=== PATIENT | female | born 1955 | race Caucasian/White ===

== ENCOUNTER 2017-03-27 12:58 | Emergency (ER) | payer OTHER ==
--- NOTE | ~2017-03-27 | CR72 ---
[facility] A Service of [facility] RADIOLOGY TEXT RESULTS PATIENT: BRINDA COLLINS LOCATION: [facility] : 53 UNIT #: [id number] AGE: [address]: Arpit Callahan MD SEX: F ORDER DR: [id number] [facility] [address] [place], [place] [address] [id number] E MR#: [id number] Acc #: [id number] NAME: BRINDA COLLINS : 1955 SEX: F STUDY DATE/TIME: 03/27/2017 14:50 UNIT: [facility] ROOM: STUDY DESCRIPTION: CR Chest Single View Portable Attending Physician: Arpit Callhaan M.D. Ordering Physician: Arpit Callahan M.D. Primary Care Physician: Laurie Cat M.D. MEDICAL IMAGING REPORT This report is preliminary unless electronic signature is present EXAM Portable chest HISTORY Dyspnea and weakness for the past 2 weeks. TECHNIQUE Single view of the chest was obtained and compared with 11/05/2016 FINDINGS Borderline cardiomegaly is noted. The lungs are clear with normal vascular markings and no pleural fluid is seen. No changes noted since the previous exam. IMPRESSION No active disease. Borderline cardiomegaly. Dictated by... Casey Oviedo M.D. THIS IS AN ELECTRONICALLY VERIFIED REPORT Casey Oviedo M.D. at 03/28/2017 10:30 AM Donald TD: 03/27/2017 16:09 JOB #: [id number] MEDICAL IMAGING REPORT Page 1 of 1 COPY
--- NOTE | ~2017-03-27 | EKG ---
PATIENT: BRINDA COLLINS UNIT #: [id number] Ventricular Rate: 55 BPM Atrial Rate: 55 BPM P-R Interval: 144 ms QRS Duration: 82 ms Q-T Interval: 408 ms QTC Calculation(Bezet): 390 ms P [place]: 14 degrees Calculated R [place]: 11 degrees Calculated T [place]: 29 degrees Diagnosis Line: Sinus bradycardia Diagnosis Line: Minimal voltage criteria for LVH, may be normal Diagnosis Line: variant Diagnosis Line: Borderline ECG Diagnosis Line: When compared with ECG of 06-NOV-2016 07:15, Diagnosis Line: QT has shortened Diagnosis Line: Confirmed by SHAUN MAHMOOD MD ([id number]) on Diagnosis Line: 03/28/2017 7:24:54 AM INTERPRETING MD: JOJO
--- NOTE | ~2017-03-27 | CT16 ---
[facility] A Service [facility] RADIOLOGY TEXT RESULTS PATIENT: BRINDA COLLINS LOCATION: [facility] : 53 UNIT #: [id number] AGE: [address]: Arpit Callahan MD SEX: F ORDER DR: [id number] [facility] [address] [place], [place] [address] [id number] E MR#: [id number] Acc #: [id number] NAME: BRINDA COLLINS : 1955 SEX: F STUDY DATE/TIME: 03/27/2017 16:41 UNIT: [facility] ROOM: STUDY DESCRIPTION: CT Angio Chest for PE Attending Physician: Arpit Callahan M.D. Ordering Physician: Arpit Callahan M.D. Primary Care Physician: Laurie Cat M.D. MEDICAL IMAGING REPORT This report is preliminary unless electronic signature is present EXAM CT chest PE protocol. HISTORY Shortness of air, onset today, diagnosed 2 weeks ago with pleurisy, one week ago with pneumonia. COMPARISON CT chest, 11/05/2016. TECHNIQUE Axial images performed through the chest following IV contrast. 3-D coronal and sagittal reconstructed images reviewed at a workstation. This CT exam was performed with one or more of the following radiation dose reduction techniques: automatic exposure control, adjustment of mA and/or kV according to patient size, and iterative reconstruction. FINDINGS The pulmonary parenchyma is unremarkable. No focal airspace disease or pneumonia. There is a right lower lobe granuloma. Trachea and bronchi unremarkable. Normal enhancement of the pulmonary arteries. No evidence of embolus. Heart and aorta unremarkable. No adenopathy. Upper abdomen appears normal. Osseous structures show mild degenerative changes in the [id number] thoracic spine. Thoracic inlet unremarkable. Generalized obesity. There is a small amount of pneumobilia. This is nonspecific in the setting of prior cholecystectomy. There are calcified bilateral hilar lymph nodes compatible with prior granulomatous disease. IMPRESSION No acute intrathoracic abnormality identified. In particular, no evidence of pulmonary embolus. [facility] A Service [facility] RADIOLOGY TEXT RESULTS PATIENT: BRINDA COLLINS [id number] 53 UNIT #: [id number] AGE: [address]: Arpit Callahan MD SEX: F ORDER DR: Dictated by... Nicol Junior M.D. THIS IS AN ELECTRONICALLY VERIFIED REPORT Nicol Junior M.D. at 03/28/2017 2:45 PM MAXIMILIAN/joao TD: 03/27/2017 17:27 JOB #: [id number] MEDICAL IMAGING REPORT Page 1 of 1 COPY
[~2017-03-27 12:58] MED LIST: AMLODIPINE BESY10 MG PO; CHEWABLE ASPIRI81 MG PO; CITALOPRAM HBR40 M1 PO; FISH OIL PO; HYDROCHLOROTHIA25 MG PO; LEVAQUIN750 MG PO; LOSARTAN POTAS100 MG PO; METOPROLOL TAR25 MG PO; SUDAFED PO; VITAMIN B6 PO; WELLBUTRIN XL150 M2 PO
[2017-03-27 13:26] LABS: BASOPHIL# 0.1 X10e3 (0-0.3); BASOPHIL% 0.6 % (0-2.5); DIFF IND NO; EOSINOPHIL# 0.1 X10e3 (0-0.7); EOSINOPHIL% 0.5 % (0.0-7.0); HEMATOCRIT 39.9 % (35.0-45.0); LYMPHOCYTE# 2.3 X10e3 (1.0-3.5); LYMPHOCYTE% 15.6 % (17.0-45.0); MEAN CELL VOLUME 90.8 FL (83-96); MEAN CORPUSCULAR HEMOGLOBIN 29.7 PG (28-34); MEAN CORPUSCULAR HGB CONC 32.7 g/dL (30-36); MONOCYTE# 0.6 X10e3 (0-1.0); MONOCYTE% 4.1 % (3.0-12.0); NEUTROPHIL# 11.8 X10e3 (1.5-7.1); NEUTROPHIL% 79.2 % (40-75); PLATELET COUNT 317 X10e3 (140-420); RED BLOOD COUNT 4.39 X10e (3.90-5.30); RED CELL DISTRIBUTION WIDTH 13.9 % (11.0-15.5); WHITE BLOOD COUNT 14.9 X10e3 (4.0-10.5)
[2017-03-27 13:52] LABS: ALBUMIN SERUM 3.8 g/dL (3.5-5.0); BILIRUBIN, DIRECT 0.1 mg/dL (0.0-0.2); BILIRUBIN,INDIRECT 0.4 mg/dL (0.0-0.9); BILIRUBIN,TOTAL 0.5 mg/dL (0.2-2.0); BUN/CREATININE RATIO 32.22; CALCIUM SERUM 8.8 mg/dL (8.4-10.2); CREATININE SERUM 0.9 mg/dL (0.6-1.4); GLOM FILT RATE Estimated 68.6 mL/min (>60); POTASSIUM 3.9 mmol/L (3.5-5.1); PROTEIN TOTAL SERUM 6.9 g/dL (6.0-8.3)
[2017-03-27 14:02] LABS: POC - CKMB 1.7 ng/mL (0.0-7.9); POC - TROPONIN <0.05 ng/mL (<=0.05)
[2017-03-27 15:55] LABS: POC - CKMB 1.4 ng/mL (0.0-7.9); POC - TROPONIN <0.05 ng/mL (<=0.05)
== END 2017-03-27 19:06 | disposition home or self-care (01) ==
LOC: CED 12:58
PROVIDERS: Emergency Medicine
DX: R06.02 Shortness of breath (principal); I10 Essential (primary) hypertension
CPT/HCPCS: 36415; 71010; 71275; 80048; 80076; 82553; 83605; 83880; 84484; 85025; 85379; 87040; 93005; 94640; 99285; Q9967